=== PATIENT | male | born 1960 | race African-American/Black ===

== ENCOUNTER 2016-06-03 08:22 | Day surgery (SDC) | payer OTHER ==
[~2016-06-03] VITALS: Ht 190.5 cm; Wt 123.2 kg
[~2016-06-03 08:22] MED LIST: ACYC800T PO; ASPI-1093 PO; HYDR25TA PO; METF500T4 PO; SERT50TA12 PO; TRAZ-144 PO
[2016-06-03] MEDS ORDERED: SODIUM CHLORIDE 0.9% 1,000 ML IV ONE ×2 (09:00→09:10)
[2016-06-03 09:57] LABS: GLUCOSE,POINT OF CARE 122 MG/DL (70-110)
[2016-06-03] MEDS ORDERED: LIDOCAINE HCL/PF 1% 30 ML VIAL ONE (11:54)
[2016-06-03 11:55] VITALS: BP 161/95
[2016-06-03] MEDS ORDERED: IOHEXOL 300 MG/ML 10 ML VIAL ONE (11:59)
[2016-06-03 12:03] VITALS: BP 165/91
[2016-06-03] MEDS ORDERED: IOHEXOL 300 MG/ML 10 ML VIAL IVP ONE (12:15)
[2016-06-03] MEDS ORDERED: LIDOCAINE HCL/PF 1% 30 ML VIAL INJ ONE (12:15)
== END 2016-06-03 12:25 | disposition home or self-care (01) ==
LOC: SDS 08:22
PROVIDERS: ATTEND Physical Medicine & Rehabilitation Pain Medicine
DX: M54.16 Radiculopathy, lumbar region (principal)
CPT/HCPCS: 64483; 82962; J1040; J3490; J7030; Q9967

== ENCOUNTER 2018-11-22 14:09 | Inpatient (IN) | payer MEDICAID, OTHER ==
[~2018-11-22] VITALS: Ht 177.8 cm; Wt 70.3 kg
[~2018-11-22 14:09] MED LIST changes: -ASPI-1093 PO; +ASPI-1182 PO; +METF-960 PO; -METF500T4 PO; -TRAZ-144 PO; +TRAZ-252 PO
[2018-11-22] MEDS ORDERED: LORazepam 2 MG/ML VIAL ONE (16:19)
[2018-11-22] MEDS ORDERED: DiphenhydrAMINE HCL 50 MG/ML VIAL ONE (16:19)
[2018-11-22] MEDS ORDERED: HALOPERIDOL LACTATE 5 MG/ML VIAL ONE (16:19)
[2018-11-22] MEDS ORDERED: DiphenhydrAMINE HCL 50 MG/ML VIAL IM ONE (16:30)
[2018-11-22] MEDS ORDERED: HALOPERIDOL LACTATE 5 MG/ML VIAL IM ONE (16:30)
[2018-11-22] MEDS ORDERED: LORazepam 2 MG/ML VIAL IM ONE (16:30)
[2018-11-22] MEDS ORDERED: ACETAMINOPHEN 325 MG TABLET PO PRN (17:30)
[2018-11-22] MEDS ORDERED: IBUPROFEN 400 MG TABLET PO PRN (17:30)
[2018-11-22] MEDS ORDERED: HALOPERIDOL 5 MG TABLET PO PRN (17:30)
[2018-11-22] MEDS ORDERED: ZOLPIDEM TARTRATE 10 MG TABLET PO PRN (17:30)
[2018-11-22 22:00] LABS: BASOPHILS % (AUTO) 1.3 % (0.0-2.0); EOSINOPHILS % (AUTO) 3.3 % (1.0-6.0); HEMATOCRIT 40.1 % (41-53); HEMOGLOBIN 12.5 g/dL (13.5-17.5); LYMPHOCYTES # (AUTO) 2.5 K/uL (1.0-4.8); LYMPHOCYTES % (AUTO) 31.6 % (22.0-44.0); MEAN CORPUSCULAR HEMOGLOBIN 24.1 pg (26.0-34.0); MEAN CORPUSCULAR HGB CONC 31.2 G/dL (31.0-37.0); MEAN CORPUSCULAR VOLUME 77 fL (80-100); MONOCYTES # (AUTO) 0.5 K/uL (0.1-1.0); NEUTROPHILS # (AUTO) 4.5 K/uL (1.8-7.7); NEUTROPHILS % (AUTO) 56.8 % (40.0-70.0); PLATELET COUNT (AUTO) 183 K/uL (150-450); RED BLOOD CELL COUNT(AUTO) 5.19 MIL/uL (4.50-5.90); RED CELL DISTRIBUTION WIDTH 15.6 % (11.5-14.5)
[2018-11-22 22:13] LABS: ANION GAP 10 mmol/L (8-16); CALCIUM, TOTAL 9.1 mg/dL (8.8-10.5); CARBON DIOXIDE 25 mmol/L (22-29); CHLORIDE 103 mmol/L (98-107); GLOMERULAR FILTR. RATE CALC > 60 mL/min (>60); GLUCOSE,RANDOM 80 mg/dL (70-110); POTASSIUM 3.7 mmol/L (3.5-5.1); SODIUM SERUM 138 mmol/L (136-145); UREA NITROGEN, BLOOD 11 mg/dL (7-18)
[2018-11-22 22:19] LABS: ALANINE AMINOTRANSFERASE 15 U/L (12-78); ALBUMIN 3.6 g/dL (3.4-5.0); ALKALINE PHOSPHATASE 120 U/L (46-116); ASPARTATE AMINOTRANSFERASE 35 U/L (15-37); BILIRUBIN,TOTAL 1.1 mg/dL (0.1-1.0); TOTAL PROTEIN, SERUM 6.2 g/dL (6.4-8.2)
[2018-11-23 00:24] VITALS: BP 117/76
[2018-11-23] MEDS ORDERED: MAG HYDROX/AL HYDROX/SIMETH ES 30 ML SUSPENSION UDCUP PO PRN (10:15)
[2018-11-23] MEDS ORDERED: GuaiFENesin/D-METHORPHAN [SUGAR-FREE] 200-20MG/10 ML SYRUP UDCUP PO PRN (10:15)
[2018-11-23] MEDS ORDERED: PETROLATUM,WHITE 28 GM JELLY TP PRN (10:15)
[2018-11-23] MEDS ORDERED: MAGNESIUM HYDROXIDE SUSPENSION 30 ML UDCUP PO PRN (10:15)
[2018-11-23] MEDS ORDERED: LOPERAMIDE HCL 2 MG CAPSULE PO PRN (10:15)
[2018-11-23] MEDS ORDERED: ALBUTEROL SULFATE HFA 90 MCG/PUFF 8 GM INHALER IH PRN (10:15)
[2018-11-23] MEDS ORDERED: ONDANSETRON HCL 4 MG TABLET PO PRN (10:15)
[2018-11-23] MEDS ORDERED: NICOTINE 14 MG/24 HOUR PATCH TD PRN (10:15)
[2018-11-23] MEDS ORDERED: IBUPROFEN 400 MG TABLET PO PRN (10:15)
[2018-11-23] MEDS ORDERED: ACETAMINOPHEN 325 MG TABLET PO PRN (10:15)
[2018-11-23] MEDS ORDERED: DOCUSATE SODIUM 100 MG CAPSULE PO PRN (10:15)
[2018-11-23] MEDS ORDERED: CloNIDine HCL 0.1 MG TABLET PO PRN (10:15)
[2018-11-23 16:00] VITALS: BP 132/89
[2018-11-23] MEDS ORDERED: MetFORMIN HCL 500 MG TABLET PO SCH (21:00)
[2018-11-24 06:11] VITALS: BP 125/78
[2018-11-24] MEDS: MetFORMIN HCL 500 MG TABLET PO SCH (07:13)
[2018-11-24 08:01] VITALS: BP 134/76
[2018-11-24 08:38] LABS: BASOPHILS % (AUTO) 0.5 % (0.0-2.0); EOSINOPHILS % (AUTO) 1.5 % (1.0-6.0); HEMOGLOBIN 13.3 g/dL (13.5-17.5); LYMPHOCYTES # (AUTO) 1.4 K/uL (1.0-4.8); MEAN CORPUSCULAR HEMOGLOBIN 23.7 pg (26.0-34.0); MEAN CORPUSCULAR HGB CONC 30.3 G/dL (31.0-37.0); MEAN CORPUSCULAR VOLUME 78 fL (80-100); MONOCYTES # (AUTO) 0.6 K/uL (0.1-1.0); MONOCYTES % (AUTO) 5.3 % (2.0-9.0); NEUTROPHILS # (AUTO) 8.9 K/uL (1.8-7.7); NEUTROPHILS % (AUTO) 79.7 % (40.0-70.0); PLATELET COUNT (AUTO) 204 K/uL (150-450); RED BLOOD CELL COUNT(AUTO) 5.62 MIL/uL (4.50-5.90); RED CELL DISTRIBUTION WIDTH 15.5 % (11.5-14.5)
[2018-11-24 08:56] LABS: HEMOGLOBIN A1C 5.8 % (4.5-6.2)
[2018-11-24] MEDS: ASPIRIN 81 MG EC TABLET PO SCH (09:10)
[2018-11-24] MEDS: HYDROCHLOROTHIAZIDE 25 MG TABLET PO SCH (09:10)
[2018-11-24 09:14] LABS: ALANINE AMINOTRANSFERASE 19 U/L (12-78); ALBUMIN 3.7 g/dL (3.4-5.0); ALKALINE PHOSPHATASE 122 U/L (46-116); ANION GAP 8 mmol/L (8-16); ASPARTATE AMINOTRANSFERASE 34 U/L (15-37); BILIRUBIN,TOTAL 0.6 mg/dL (0.1-1.0); CALCIUM, TOTAL 9.2 mg/dL (8.8-10.5); CARBON DIOXIDE 29 mmol/L (22-29); CHLORIDE 101 mmol/L (98-107); CHOL/HDL RATIO 2.7 (4.2-7.3); CHOLESTEROL 151 mg/dL (131-200); CREATININE 1.07 mg/dL (0.60-1.30); GLOMERULAR FILTR. RATE CALC > 60 mL/min (>60); GLUCOSE,RANDOM 124 mg/dL (70-110); HDL CHOLESTEROL 56 mg/dL (40-60); LDL CHOL (CALC.) 85 mg/dL (0-130); POTASSIUM 4.8 mmol/L (3.5-5.1); SODIUM SERUM 138 mmol/L (136-145); THYROID STIMULATING HORMONE 0.81 uIU/mL (0.36-3.74); TOTAL PROTEIN, SERUM 6.7 g/dL (6.4-8.2); TRIGLYCERIDES 52 mg/dL (15-150); UREA NITROGEN, BLOOD 10 mg/dL (7-18)
[2018-11-24 16:28] VITALS: BP 139/88
[2018-11-24] MEDS ORDERED: TraZODone HCL 50 MG TABLET PO SCH (21:15)
[2018-11-25 05:53] VITALS: BP 114/78
[2018-11-25 05:56] LABS: GLUCOMETER DEV NAME(LOC) BV3N.; GLUCOSE,POINT OF CARE 106 MG/DL (70-110)
[2018-11-25] MEDS: MetFORMIN HCL 500 MG TABLET PO SCH (06:41)
[2018-11-25] MEDS: HYDROCHLOROTHIAZIDE 25 MG TABLET PO SCH (08:40)
[2018-11-25] MEDS: ASPIRIN 81 MG EC TABLET PO SCH (08:41)
[2018-11-25] MEDS: LORazepam 2 MG TABLET PO PRN ×2 (08:42→20:13)
[2018-11-25] MEDS ORDERED: SERTRALINE HCL 50 MG TABLET PO SCH (09:00)
[2018-11-25] MEDS ORDERED: OLANZapine 10 MG TABLET PO ONE (09:45)
[2018-11-25 16:24] VITALS: BP 129/83
[2018-11-25] MEDS: OLANZapine 10 MG TABLET PO SCH (20:13)
[2018-11-26 06:16] VITALS: BP 122/72
[2018-11-26] MEDS: MetFORMIN HCL 500 MG TABLET PO SCH (06:25)
[2018-11-26 08:05] VITALS: BP 113/76
[2018-11-26] MEDS: ASPIRIN 81 MG EC TABLET PO SCH (08:21)
[2018-11-26] MEDS: HYDROCHLOROTHIAZIDE 25 MG TABLET PO SCH (08:22)
[2018-11-26] MEDS: NICOTINE 21 MG/24 HOUR PATCH TD SCH (08:34)
[2018-11-26 16:30] VITALS: BP 116/60
[2018-11-26] MEDS: OLANZapine 10 MG TABLET PO SCH (20:13)
[2018-11-26] MEDS: LORazepam 2 MG TABLET PO PRN (20:13)
[2018-11-27 04:00] VITALS: BP 130/76
[2018-11-27] MEDS: MetFORMIN HCL 500 MG TABLET PO SCH (06:34)
[2018-11-27 08:25] VITALS: BP 106/69
[2018-11-27] MEDS: ASPIRIN 81 MG EC TABLET PO SCH (08:36)
[2018-11-27] MEDS: HYDROCHLOROTHIAZIDE 25 MG TABLET PO SCH (08:37)
[2018-11-27] MEDS: NICOTINE 21 MG/24 HOUR PATCH TD SCH (09:48)
[2018-11-27 16:00] VITALS: BP 115/73
[2018-11-27] MEDS: OLANZapine 10 MG TABLET PO SCH (21:20)
[2018-11-28 05:59] VITALS: BP 124/76
[2018-11-28] MEDS: MetFORMIN HCL 500 MG TABLET PO SCH (06:49)
[2018-11-28] MEDS: HYDROCHLOROTHIAZIDE 25 MG TABLET PO SCH (09:39)
[2018-11-28] MEDS: ASPIRIN 81 MG EC TABLET PO SCH (09:39)
[2018-11-28] MEDS: NICOTINE 21 MG/24 HOUR PATCH TD SCH (09:55)
[2018-11-28 16:00] VITALS: BP 116/87
[2018-11-28] MEDS: LORazepam 2 MG TABLET PO PRN ×2 (16:33→20:33)
[2018-11-28] MEDS: OLANZapine 10 MG TABLET PO SCH (20:33)
[2018-11-29] MEDS: MetFORMIN HCL 500 MG TABLET PO SCH (06:46)
[2018-11-29] MEDS: HYDROCHLOROTHIAZIDE 25 MG TABLET PO SCH (08:42)
[2018-11-29] MEDS: ASPIRIN 81 MG EC TABLET PO SCH (08:44)
[2018-11-29] MEDS: NICOTINE 21 MG/24 HOUR PATCH TD SCH (09:00)
[2018-11-29 16:00] VITALS: BP 127/68
[2018-11-29] MEDS: LORazepam 2 MG TABLET PO PRN (16:46)
[2018-11-29] MEDS: OLANZapine 10 MG TABLET PO SCH (20:44)
[2018-11-30] MEDS: MetFORMIN HCL 500 MG TABLET PO SCH (06:56)
[2018-11-30 07:05] VITALS: BP 130/88
[2018-11-30 08:21] VITALS: BP 119/81
[2018-11-30] MEDS: ASPIRIN 81 MG EC TABLET PO SCH (08:34)
[2018-11-30] MEDS: HYDROCHLOROTHIAZIDE 25 MG TABLET PO SCH (08:34)
[2018-11-30] MEDS: NICOTINE 21 MG/24 HOUR PATCH TD SCH (08:36)
[2018-11-30] MEDS ORDERED: OLAN10TA3 PO (14:50)
[2018-11-30] MEDS ORDERED: METF-960 PO (14:53)
== END 2018-11-30 13:20 | disposition home or self-care (01) | DRG 750 ==
LOC: EDUNIT# 14:09 → EMS 14:14 → UNDOADMIN 20:18 → B3A 20:18 → UNDODISIN 11-30 13:20
DX: F20.0 Paranoid schizophrenia (principal); R45.850 Homicidal ideations; E11.9 Type 2 diabetes mellitus without complications; G40.909 Epilepsy, unspecified, not intractable, without status epilepticus; D64.9 Anemia, unspecified; E80.6 Other disorders of bilirubin metabolism; I10 Essential (primary) hypertension; Z59.0 Homelessness; Z88.8 Allergy status to other drugs, medicaments and biological substances
CPT/HCPCS: 83036; 84443; G0480; J1200; J1630; J2060